=== PATIENT | female | born 1935 | race Caucasian/White ===

== ENCOUNTER → 2018-12-30 | Outpatient (CLI) | payer OTHER ==
[~2018-12-30] MED LIST: ASPIR 8181 MG; ASPIRIN325 PO; CARDIZEM CD180 MG PO; CARDIZEM30 MG PO; CATAPRES-TTS 20.2 M1 TOP; CHLORTHALIDONE25 MG; FEXOFENADINE H180 MG PO; L-LYSINE PO; MECLIZINE HCL25 MG; PROZAC20 MG PO; REMERON15 MG PO; SIMVASTATIN40 MG PO; TENORMIN50 MG
== END ==
LOC: M.ULTRA 10:29
DX: I12.9 Hypertensive chronic kidney disease with stage 1 through stage 4 chronic kidney disease, or unspecified chronic kidney disease (principal); N18.4 Chronic kidney disease, stage 4 (severe); N28.1 Cyst of kidney, acquired

== ENCOUNTER → 2019-08-08 | Day surgery (SDC) | payer MEDICARE ==
[~2019-08-08] MED LIST changes: +CLONIDINE HCL0.2 M2 PO; +DILTIAZEM 24HR240 M1 PO; +FLUOXETINE HCL40 MG PO; +IRON325 PO; +PLAVIX 75 MG TA75 MG PO; +SODIUM BICARBO650 M3 PO; +TYLENOL325 MG PO
[2019-08-08 08:26] LABS: HEMATOCRIT 33.3 % (37.0-47.0); HEMOGLOBIN 11.2 gm/dL (12.0-15.0); MCH 29.8 pg (26.0-34.0); MCHC 33.6 g/dL (28.0-37.0); MCV 88.5 fL (80.0-100.0); MPV 7.3 fl. (7.2-11.1); RBC 3.77 mil/uL (4.20-5.00); RDW-CV 14.1 % (10.5-14.5); WBC 8.7 thou/uL (4.0-11.0)
[2019-08-08 08:37] LABS: CALCIUM 8.9 mg/dL (8.5-10.1); CREATININE 2.8 mg/dL (0.6-1.3); POTASSIUM 4.4 mmol/L (3.5-5.1)
--- NOTE | 2019-08-08 13:06 | OP ---
[facility] [address] [place] [address] OPERATIVE REPORT Name: ASHISH FOREMAN Room: [facility]#: [id number] Admission: 08/08/19 Attend Phys: John Sotelo MD Discharge: Date of : 39 Report #: [id number] THIS REPORT FOR: //name// cc: Alex Blackwell John E. DO ~ THIS REPORT FOR: //name// CC: Alex Sotelo DATE OF SERVICE: 08/08/2019 PREOPERATIVE DIAGNOSIS: End-stage renal disease. POSTOPERATIVE DIAGNOSIS: End-stage renal disease. PROCEDURE: Left upper extremity brachiobasilic arteriovenous fistula formation. SURGEON: John Sotelo M.D. ROUTE VENDING MACHINE SERVICER: Daryl Puckett, surgical instrument mechanic. COMPLICATIONS: None. ESTIMATED BLOOD LOSS: 20 mL. SPECIMEN: None. INDICATIONS FOR PROCEDURE: The patient is a very pleasant 84-year-old white female with end-stage renal disease, not yet on dialysis. We plan for AV fistula, left upper extremity today. Vein mapping suggested adequate cephalic and basilic vein for fistula formation. Informed consent was obtained with risks including but not limited to bleeding, infection, need for further surgery, pain, , heart attack, stroke, steal syndrome. The patient understood these risks and was agreeable to proceed. DESCRIPTION OF PROCEDURE: The patient was taken to the OR and placed in a supine position. After adequate anesthesia was initiated, timeout was performed. The patient's left upper extremity was prepped and draped in usual sterile fashion. I created a transverse incision just above the antecubital fossa left upper extremity. Sharp and blunt dissections were carried down until I encountered the cephalic vein. Despite the preoperative vein map worksheet, I can only find a very small, less than 2 mm branch of the cephalic vein. I did extensive dissection laterally and could not find any other larger vein branches. I then turned my attention to basilic vein. I dissected this vein out. That was clearly a 3-4 mm and adequate [place] [address] OPERATIVE REPORT Name: ASHISH FOREMAN Room: [facility]#: [id number] Admission: 08/08/19 Attend Phys: John Sotelo MD Discharge: Date of : 39 Report #: [id number] dissected out the brachial artery and controlled proximally and distally. I heparinized the patient. I ligated the distal basilic vein. I spatulated the free end. I was able to pass the 3 mm dilator quite easily up to the vein. I created a longitudinal arteriotomy in the brachial artery. I created end-to-side anastomosis with the vein using a running 6-0 Prolene suture. At the completion of anastomosis, there was adequate hemostasis and excellent blood flow into the basilic vein. There was a palpable thrill running up the arm. I irrigated with antibiotic saline. I controlled bleeding as needed with electrocautery, ties, clips and Amador, closed the wound in multiple layers using 3-0 Vicryl and 4-0 Monocryl for the skin. Incision was dressed with Dermabond. The patient tolerated the procedure well and was taken alert and awake to recovery room in good condition. The patient will need a transposition of the basilic vein fistula. Unfortunately, we were unable to use the cephalic vein. We will schedule this in the next 4-6 weeks. <ELECTRONICALLY SIGNED> By: John Sotelo MD 08/08/19 1306 1008 1024Roblatoya Sotelo MD /nt
--- NOTE | 2019-08-08 16:49 | EKG ---
[place] [address] ELECTROCARDIOGRAM REPORT Name: ASHISH FOREMAN Room: [facility]#: [id number] Admission: 08/08/19 Attend Phys: John Sotelo MD Discharge: Date of : 39 Date of Service: 08/08/19816 Report #: [id number] THIS REPORT FOR: //name// [facility] Test Date: 2019-08-08 Test Time: 08:17:43 Pat Name: ASHISH FOREMAN Department: Room: Gender: Camera Mechanic: : 1935 Requested By: John Sotelo Order Number: [id number] Reading MD: Alex Martinez Measurements Intervals [place] Rate: 71 P: 8 [place]: 225 QRS: -43 QRSD: 116 T: 72 QT: 428 QTc: 466 Interpretive Statements Sinus rhythm Prolonged [place] interval Left anterior fascicular block Left ventricular hypertrophy Compared to ECG 10/06/2015 00:47:11 First degree AV block now present Left anterior fascicular block now present Left ventricular hypertrophy now present ST (T wave) deviation no longer present Electronically Signed On 08-08-2019 16:48:12 CDT by Alex Martinez [email or web address] <ELECTRONICALLY SIGNED> By: Alex Martinez MD, [facility] 08/08/19 1648 6 6 Alex Martinez MD, [facility] /EPI
== END | disposition home or self-care (01) ==
LOC: M.SUR 05:18
PROVIDERS: Surgery Vascular Surgery
DX: I12.0 Hypertensive chronic kidney disease with stage 5 chronic kidney disease or end stage renal disease (principal); N18.6 End stage renal disease; M19.90 Unspecified osteoarthritis, unspecified site; E78.5 Hyperlipidemia, unspecified; Z79.899 Other long term (current) drug therapy; Z91.040 Latex allergy status; Z86.73 Personal history of transient ischemic attack (TIA), and cerebral infarction without residual deficits; Z98.890 Other specified postprocedural states

== ENCOUNTER → 2019-10-22 | Day surgery (SDC) | payer MEDICARE ==
[~2019-10-22] MED LIST changes: +NORCO 5-325 TA1 EAC1 PO
[2019-10-22 07:03] LABS: HEMATOCRIT 31.9 % (37.0-47.0); HEMOGLOBIN 10.6 gm/dL (12.0-15.0); MCH 30.3 pg (26.0-34.0); MCHC 33.3 g/dL (28.0-37.0); MCV 90.9 fL (80.0-100.0); MPV 7.3 fl. (7.2-11.1); RBC 3.51 mil/uL (4.20-5.00); RDW-CV 13.8 % (10.5-14.5); WBC 8.1 thou/uL (4.0-11.0)
[2019-10-22 07:11] LABS: CALCIUM 8.6 mg/dL (8.5-10.1); CREATININE 3.5 mg/dL (0.6-1.3); POTASSIUM 4.1 mmol/L (3.5-5.1)
--- NOTE | 2019-10-22 14:12 | EKG ---
[place] [address] ELECTROCARDIOGRAM REPORT Name: ASHISH FOREMAN Room: [facility]#: [id number] Admission: 10/22/19 Attend Phys: John Sotelo MD Discharge: Date of : 39 Date of Service: 10/22/19 0655 Report #: [id number] THIS REPORT FOR: //name// [facility] Test Date: 2019-10-22 Test Time: 06:55:03 Pat Name: ASHISH FOREMAN Department: Room: Gender: Slurry Worker: GANESH : 1935 Requested By: John Sotelo Order Number: [id number] Reading MD: Alex Martinez Measurements Intervals [place] Rate: 65 P: 35 [place]: 227 QRS: -38 QRSD: 120 T: 60 QT: 434 QTc: 452 Interpretive Statements Sinus rhythm Prolonged [place] interval LVH with IVCD, LAD and secondary repol abnrm Compared to ECG 08/08/2019 08:17:43 Intraventricular conduction delay now present Early repolarization now present Electronically Signed On 10-22-2019 14:10:20 CDT by Alex Martinez [email or web address] <ELECTRONICALLY SIGNED> By: Alex Martinez MD, [facility] 10/22/19 1410 0655 0655 Alex Martinez MD, [facility] /EPI
--- NOTE | 2019-10-23 16:06 | OP ---
[address] [address] OPERATIVE REPORT Name: ASHISH FOREMAN Room: [facility]#: [id number] Admission: 10/22/19 Attend Phys: John Sotelo MD Discharge: Date of : 39 Report #: [id number] THIS REPORT FOR: //name// cc: Alex Blackwell John E. DO ~ THIS REPORT FOR: //name// CC: Alex Sotelo DATE OF SERVICE: 10/22/2019 PREOPERATIVE DIAGNOSIS: End-stage renal disease. POSTOPERATIVE DIAGNOSIS: End-stage renal disease. PROCEDURE: Left upper extremity fistula revision with transposition. SURGEON: John Sotelo MD HAIRSPRING INSPECTOR: Daryl Sierra. COMPLICATIONS: None. ESTIMATED BLOOD LOSS: 10 mL. SPECIMEN: None. ANESTHESIA: Local sedation. COMPLICATIONS: None. INDICATIONS FOR PROCEDURE: The patient is a very pleasant 84-year-old white female who is approaching end-stage renal disease. She is in need of dialysis access. I previously placed a brachiobasilic AV fistula in the left upper extremity. She has a good thrill at this location. The vein is too deep and posterior for access and so plan transposition today. Informed consent was obtained from the patient with risks including but not limited to bleeding, infection, need for further surgery, pain, , heart attack, stroke, steal syndrome. The patient understood these risks and was agreeable to proceed. DESCRIPTION OF PROCEDURE: The patient was taken to the OR and placed in the supine position. Sedation was initiated. Left arm was prepped and draped in usual sterile fashion. Timeout was performed. I infused a total of 30 mL of 50/50 mixture of 1% lidocaine and 0.5% Marcaine throughout the procedure for local anesthetic. I created a longitudinal incision [place] [address] OPERATIVE REPORT Name: ASHISH FOREMAN Room: [facility]#: [id number] Admission: 10/22/19 Attend Phys: John Sotelo MD Discharge: Date of : 39 Report #: [id number] extremity from the antecubital fossa to the shoulder. Sharp and blunt dissections were carried down in a tangential fashion until I encountered the fistulized vein. I skeletonized the fistulized vein along its length from the antecubital fossa to the shoulder. I ligated multiple side branches. There were many more side branches in its typical. I used a combination of silk suture and clips to ligate each of these. I transposed the vein up over the biceps muscle. I closed a deep running layer with a 2-0 Vicryl suture below to transpose the vein. Prior to doing this, I controlled bleeding with electrocautery, ties, clips and Amador and irrigated with antibiotic saline. I then closed the skin directly over the transposed vein using a running 3-0 Stratafix suture. At completion, there was an excellent thrill within the transposed vein upon the biceps tendon. Incision was dressed with Dermabond. The patient was taken alert and awake to recovery room in good condition. Her basilic vein had not matured as much as I would have expected. There were several large side branches near the anastomosis, which would likely stealing blood flow away. I am optimistic that now as these side branches have been ligated, her fistula will mature well. However, I would like to give another 4 to 6 weeks to mature before use given that it has not matured as much as I would have expected with these large side branches. <ELECTRONICALLY SIGNED> By: John Sotelo MD 10/23/19 1606 0827 0846John Sotelo MD /nt
== END | disposition home or self-care (01) ==
LOC: M.SUR 06:21
PROVIDERS: Surgery Vascular Surgery
DX: I12.0 Hypertensive chronic kidney disease with stage 5 chronic kidney disease or end stage renal disease (principal); N18.6 End stage renal disease; Z98.890 Other specified postprocedural states; Z79.899 Other long term (current) drug therapy; Z86.73 Personal history of transient ischemic attack (TIA), and cerebral infarction without residual deficits; Z96.653 Presence of artificial knee joint, bilateral; Z88.8 Allergy status to other drugs, medicaments and biological substances; Z91.040 Latex allergy status; Z11.59 Encounter for screening for other viral diseases